=== PATIENT | male | born 1980 | race Caucasian/White ===

== ENCOUNTER 2020-09-22 02:41 | Emergency (ER) | payer MEDICAID ==
[~2020-09-22] VITALS: Ht 172.7 cm; Wt 91.3 kg
[2020-09-22] MEDS ORDERED: BICILLIN-LA 2,400,000 UNITS/4 ML IM ONE (03:00)
[2020-09-22] MEDS ORDERED: CEFTRIAXONE 250 MG IM ONE (03:00)
[2020-09-22] MEDS ORDERED: AZITHROMYCIN 500 MG TABLET PO ONE (03:00)
[2020-09-22] MEDS ORDERED: AZITHROMYCIN 500 MG TABLET ONE (03:16)
[2020-09-22] MEDS ORDERED: CEFTRIAXONE 250 MG ONE (03:16)
[2020-09-22] MEDS ORDERED: CEFTRIAXONE 1,000 MG ONE (03:20)
--- NOTE | 2020-09-22 03:20 | NUR ---
PATIENT SITTING UP IN BED IN NAD. SAFETY MAINTAINED. APPROPRIATE AND COOPERATIVE WITH CARE. EDUCATED ON 3 ANTIBIOTICS THAT WILL BE ADMINISTERED AND HOW AND REASONING. PATIENT HAD NO FURTHER QUESTIONS.
--- NOTE | 2020-09-22 03:40 | NUR ---
DISCHARGE INSTRUCTIONS REVIEWED WITH PATIENT. NO PRESCRIPTION AT DC. NO IV PLACED DURING THIS ER VISIT. ALL PERSONAL BELONGINGS WITH PATIENT ON DC. L GLUTEAL IM INJECTION HAD SLIGHT BLEEDING AT SITE AFTER INJECTION DUE TO NEEDLE SIZE AND MEDICATION. BANDAIDS PLACED OVER BILATERAL GLUTEAM IM SITES. NO BLEEDING AT DC. PATIENT DENIED ANY ADVERSE REACTIONS. STEADY GAIT TO LOBBY. EDUCATION REGARDING SAFE SEX AND USE OF CONDOMS REVIEWED WITH PATIENT.
[2020-09-22 03:47] VITALS: BP 156/90
== END 2020-09-22 03:50 | disposition home or self-care (01) ==
LOC: ED 03:30
DX: A51.0 Primary genital syphilis (principal); A64 Unspecified sexually transmitted disease; F10.10 Alcohol abuse, uncomplicated; F12.10 Cannabis abuse, uncomplicated; F15.10 Other stimulant abuse, uncomplicated; R30.0 Dysuria; F17.210 Nicotine dependence, cigarettes, uncomplicated; Z72.9 Problem related to lifestyle, unspecified; Y90.9 Presence of alcohol in blood, level not specified
CPT/HCPCS: 36415; 86592; 86780; 87491; 87591; 96372; 99284; 99406; J0561; J0696